=== PATIENT | female | born 1940 | race Caucasian/White ===

== ENCOUNTER → 2017-02-15 | Outpatient (CLI) | payer MEDICARE, OTHER | END | disposition home or self-care (01) | LOC: GMAB 10:43 | PROVIDERS: ATTEND Family Medicine | DX: E53.8 Deficiency of other specified B group vitamins (principal); I10 Essential (primary) hypertension ==

== ENCOUNTER → 2017-05-02 | Outpatient (CLI) | payer MEDICARE, OTHER ==
[~2017-05-02] MED LIST: IPRATROPIUM/ALBUTEROL 3 ML VIAL NEB ONE
== END | disposition home or self-care (01) ==
LOC: RESP 09:58
PROVIDERS: ATTEND Family Medicine
DX: J45.20 Mild intermittent asthma, uncomplicated (principal)
CPT/HCPCS: 94060; J7620

== ENCOUNTER 2017-05-15 15:27 | Inpatient (IN) | payer MEDICARE, OTHER ==
--- NOTE | 2017-05-15 15:28 | HP ---
SUPERVISING PHYSICIAN: Jorge A Fragoso M.D. CHIEF COMPLAINT: Shortness of breath and cough. HISTORY OF PRESENT ILLNESS: This is a 76 year-old female who went to see her primary care physician due to continued upper respiratory infection-like symptoms. Additionally she had a fever up to 102 and green productive sputum upon cough. Starting in April she started having similar symptoms. She was treated as an outpatient with an injectable Rocephin as well as p.o. azithromycin and Cefdinir. Throughout that time, she has really not improved as far as her cough is concerned. She has not noticed any fever until the last day or so, however. She also states that she was newly diagnosed with asthma via a Pulmonary Function Test. Anyhow, today she underwent further workup including chest x-ray initially which showed left lower lobe pneumonia. Her Influenza screen was negative. White count was elevated at 15,000. She ended up having a CT scan of the chest as well and this showed bilateral patchy infiltrates in the lower lobes with nodular densities with tree-in-bud pattern. She also had multiple bilateral pulmonary nodules. For this reason, she was referred for direct admission due to failed outpatient therapy. At time of examination the patient is alert. She is actively coughing any time she attempts to speak. She does not appear to be in severe distress at this time. PAST MEDICAL HISTORY: 1. Cardiac arrhythmias. 2. Hypertension. 3. Diverticulosis. 4. Asthma. PAST SURGICAL HISTORY: 1. Hysterectomy. 2. section. 3. Bilateral knee replacements. 4. Colonoscopy. 5. Cataract surgery. CURRENT MEDICATIONS: 1. Hydrochlorothiazide 12.5 mg daily. 2. Norvasc 5 mg daily but she said she has not really been taking that lately. 3. Potassium 10 mEq p.o. daily. 4. Inderal LA 60 mg daily. 5. Calcium 600 mg 2 tabs p.o. daily. 6. Breo ellipta 100 mcg/25 mcg, one inhalation daily. 7. Albuterol nebulizers 4 times a day as needed. ALLERGIES: AZITHROMYCIN, LEVAQUIN, PENICILLIN, PROTONIX AND ZOCOR. FAMILY HISTORY: She has a sister has had a myocardial infarction. Mother who had renal cell carcinoma. Father who of sudden cardiac . SOCIAL HISTORY: The patient is a nondrinker and nonsmoker. No illicit drugs. She is . REVIEW OF SYSTEMS: CONSTITUTIONAL: Positive for fevers, chills and fatigue. HEENT: No headaches or vision changes. She has had nasal congestion but no throat pain. No ear pain. NECK: With no neck stiffness or neck pain. RESPIRATORY: Positive for cough. No hemoptysis. She has had a productive sputum. No pleuritic chest pains. CARDIOVASCULAR: No recent palpitations. No chest pain. No lower extremity edema. GASTROINTESTINAL: No nausea, vomiting, diarrhea or constipation or abdominal pain. GENITOURINARY: No dysuria, frequency or throat pain. HEMATOLOGIC: No easy bruising or transfusion reaction. ENDOCRINE: No polydipsia, polyuria. No heat or cold intolerance. BACK: No back pain, joint pain or joint swelling or muscle cramps. SKIN: No rashes, lesions or wounds. PHYSICAL EXAMINATION: VITAL SIGNS: GENERAL: This is a 36 year-old female. HEENT: Head is normocephalic and atraumatic. EYES: Pupils are equal and reactive. NOSE: No drainage. THROAT: With moist mucosa. NECK: Supple, midline trachea. No jugular venous distention. CHEST: Symmetrical with equal rise and fall with inspiration and expiration. Lung sounds with an inspiratory and expiratory wheeze right upper lung field. Bibasilar coarse sounds are noted. CARDIOVASCULAR: Regular rate and rhythm. Normal S1 and S2. ABDOMEN: Soft, positive bowel sounds. No tenderness to palpation. No organomegaly. GENITOURINARY: Exam was deferred. EXTREMITIES: Lower extremities with no edema. Pulses are 2+. Capillary refill less than 2 seconds. NEUROLOGIC: The patient is alert and oriented. Moves all extremities. Extraocular movements are intact. RADIOLOGY: Chest x-ray as an outpatient showed a left lower lobe pneumonia with a CT scan that showed bilateral patchy infiltrates in the lower lobes with tree-in-bid pattern, nodular densities concerning for bronchiectasis or aspiration. LABORATORY: CBC as an outpatient showed white blood cell count of 15,000, hemoglobin 12.7, hematocrit 37.6, platelet count 301. Influenza screen is negative. ASSESSMENT: 1. Bibasilar pneumonia with failed outpatient therapy. 2. Asthma. 3. Hypertension. 4. History of cardiac arrhythmias. PLAN: At this time, we will admit the patient under pneumonia guidelines. Due to her allergies, will start her on Cefepime. I have added nebulizer therapy given her recent diagnosis of asthma. I have ordered blood cultures times 2 along with a sputum culture. Initial chemistries have been ordered as well as a repeat CBC. DVT and GI prophylaxis have been ordered with Lovenox and PPI respectively. The patient is a full code at this time. Will resume her home medications once they are reconciled in the computer. #[id number] [facility]
[2017-05-15] MEDS ORDERED: SODIUM CHLORIDE 0.9% (FLUSH) 10 ML SYG IV PRN (16:09)
[2017-05-15] MEDS ORDERED: ACETAMINOPHEN 325 MG TAB PO PRN (16:09)
[2017-05-15] MEDS ORDERED: ENOXAPARIN SODIUM 40 MG/0.4 ML SYG SUBCU SCH (16:30)
[2017-05-15] MEDS ORDERED: IV SET AND CAP CHANGE INJ INJ SCH (16:30)
[2017-05-15] MEDS ORDERED: CEFEPIME 2 GM VIAL IVPB ONE ×2 (17:33→19:31)
[2017-05-15] MEDS ORDERED: SODIUM CHL 0.9% 50ML MIN-BAG+ 50 ML IVPB ONE ×2 (17:33→19:30)
[2017-05-15] MEDS: CEFEPIME 2 GM in SODIUM CHL 0.9% 50ML MIN-BAG+ 50 ML IVPB SCH (17:50)
[2017-05-15] MEDS: KCL 20 MEQ/NS 1,000 ML IVS PRN (19:36)
[2017-05-15] MEDS ORDERED: PROPRANOLOL LA 80 MG CAP PO SCH (21:00)
[2017-05-15] MEDS: IPRATROPIUM/ALBUTEROL 3 ML VIAL INH SCH (21:09)
[2017-05-16] MEDS: CEFEPIME 2 GM in SODIUM CHL 0.9% 50ML MIN-BAG+ 50 ML IVPB SCH ×2 (04:10→16:08)
[2017-05-16] MEDS: OMEPRAZOLE CAP 20 MG CAP PO SCH (06:13)
--- NOTE | 2017-05-16 07:06 | RAD ---
EXAM DESCRIPTION: Chest,1 View CLINICAL HISTORY: Pneumonia COMPARISON: Chest CT obtained yesterday FINDINGS: The cardiomediastinal silhouette is unremarkable. Mural calcifications are noted in the aortic arch. Interstitial and patchy alveolar opacities are present in both lung bases, slightly worse on the left side. No pleural effusion is seen. The lung volumes are within normal range. There is no pneumothorax or acute fracture. IMPRESSION: Interstitial and patchy alveolar opacity in both lung bases, worse on the left side. Findings are stable or slightly worse from yesterday and consistent with provided history of pneumonia. No new abnormality or other significant interval change. Electronically signed by: Taco Miranda MD 05/16/2017 7:04 AM [facility]
[2017-05-16] MEDS: POTASSIUM CHLORIDE 10 MEQ TAB PO SCH (08:54)
[2017-05-16] MEDS: hydroCHLOROthiazide 12.5 MG CAP PO SCH (08:54)
[2017-05-16] MEDS: KCL 20 MEQ/NS 1,000 ML IVS PRN ×2 (08:56→20:37)
[2017-05-16] MEDS: IPRATROPIUM/ALBUTEROL 3 ML VIAL INH SCH ×4 (08:57→20:12)
[2017-05-16] MEDS: PROPRANOLOL 60 MG PO SCH ×2 (10:33→20:37)
--- NOTE | 2017-05-16 13:41 | PN ---
SUPERVISING PHYSICIAN: Jorge A Fragoso MD DATE: 05/16/17 SUBJECTIVE: The patient feels okay. She is still having quite a bit of coughing , but does not have any shortness of breath. She says she feels like she may have had a fever last night, but was not really sure if she did. OBJECTIVE: VITAL SIGNS: Blood pressure 128/55. Heart rate 80. Respiratory rate 18. Temperature 96.7. Oxygen saturation 95% GENERAL: Ms. Riddle is a 76-year-old female in no severe distress at this time. NEUROLOGIC: Alert and oriented. LUNGS: Diminishment in the left base. CARDIOVASCULAR: Regular rate and rhythm. Normal S1, S2. ABDOMEN: Soft. Positive bowel sounds. EXTREMITIES: Lower extremities with no edema. Pulses 2+. Capillary refill less than 2 seconds. LABORATORY: White count 10.2, which is an improvement from yesterday at 16.0. Hemoglobin 10.9, hematocrit 32.1, platelet count 260. Sodium 139, potassium 3.2 , chloride 104, CO2 24, BUN 18, creatinine 1.13, glucose 110, calcium 8.6. RADIOLOGY: Chest x-ray does show a little bit of increase in the left lower lobe infiltrate. ASSESSMENT: 1. Bibasilar pneumonia with failed outpatient therapy. 2. Asthma. 3. Hypertension. 4. History of cardiac arrhythmias. 5. Prerenal azotemia, improved. 6. Hypokalemia, mildly improved. PLAN: We will continue the cefepime. She has remained afebrile and her white count is improved. Radiographically, there may be a mild increase in infiltrate. I will recheck this tomorrow with standing and not portable. We will get a two-view chest x-ray. Continue to monitor the sputum culture. I have also ordered potassium replacement. #[id number] [facility]
[2017-05-16] MEDS ORDERED: SODIUM CHL 0.9% 50ML MIN-BAG+ 50 ML IVPB ONE ×2 (16:01→20:20)
[2017-05-16] MEDS ORDERED: CEFEPIME 2 GM VIAL IVPB ONE ×2 (16:01→20:20)
[2017-05-16] MEDS: ENOXAPARIN SODIUM 40 MG/0.4 ML SYG SUBCU SCH (20:37)
[2017-05-17] MEDS: CEFEPIME 2 GM in SODIUM CHL 0.9% 50ML MIN-BAG+ 50 ML IVPB SCH ×2 (04:18→16:54)
[2017-05-17] MEDS: OMEPRAZOLE CAP 20 MG CAP PO SCH (06:13)
--- NOTE | 2017-05-17 07:45 | RAD ---
Study: Frontal and Lateral Views of the Chest. Indication: pneumonia follow up Comparison: May 16, 2017. Impression: Heart size normal. Patchy opacities at the lung bases are improved but not completely resolved. Continued follow-up recommended. Tiny left effusion. No pneumothorax. Osteopenia. If this is a new finding, DEXA scan recommended as well as evaluation for possible osteoporosis treatment. Electronically signed by: Codey Heredia MD 05/17/2017 7:44 AM [facility]
[2017-05-17] MEDS: POTASSIUM CHLORIDE 10 MEQ TAB PO SCH (08:18)
[2017-05-17] MEDS: IPRATROPIUM/ALBUTEROL 3 ML VIAL INH SCH ×4 (08:40→21:26)
[2017-05-17] MEDS: KCL 20 MEQ/NS 1,000 ML IVS PRN ×2 (08:51→21:59)
[2017-05-17] MEDS: PROPRANOLOL 60 MG PO SCH ×2 (10:05→20:39)
[2017-05-17] MEDS: hydroCHLOROthiazide 12.5 MG CAP PO SCH (10:05)
--- NOTE | 2017-05-17 15:13 | PN ---
SUPERVISING PHYSICIAN: Jorge A Fragoso MD DATE: 05/17/17 SUBJECTIVE: Mr. Riddle feels a little bit better today. She is still having quite a bit of cough. Her shortness of breath is significantly improved. OBJECTIVE: VITAL SIGNS: Blood pressure 111/75. Heart rate 82. Respiratory rate 16. Temperature 98.4. Oxygen saturation 96%. She did have a fever last night of 100.2 around 10 o'clock. GENERAL: Ms. Riddle is a 76-year-old female in no active distress at this time. NEUROLOGIC: Alert and oriented. LUNGS: Left lower base diminishing. No active wheezing. CARDIOVASCULAR: Regular rate and rhythm. Normal S1, S2. ABDOMEN: Soft. Positive bowel sounds. EXTREMITIES: Lower extremities with no edema. Pulses 2+. Capillary refill less than 2 seconds. LABORATORY: Presumptive Streptococcus pneumoniae in the sputum culture. Final sensitivities are not here yet. White count 10.6, hemoglobin 11.0, hematocrit 32.5, platelet count 266. Sodium 140, potassium 3.6, chloride 107, CO2 22, BUN 12, creatinine 0.93, glucose 101, calcium 8.7. RADIOLOGY: Left lower base consolidation has better aeration, but not completely resolved as of yet. ASSESSMENT: 1. Left lower lobe pneumonia. 2. Asthma. 3. Hypertension. 4. History of cardiac arrhythmias. 5. Prerenal azotemia, resolved. 6. Hypokalemia, resolved. PLAN: 1. Continue cefepime. Her WBC count is still normal and radiographically, she has better aeration. I will recheck her chest x-ray tomorrow. There is really no reason to check her labs again. If she is stable, she can probably go home on p.o. antibiotics. It would be beneficial to have her sensitivities back so hopefully they will be before she goes home. #[id number] [facility]
[2017-05-17] MEDS ORDERED: CEFEPIME 2 GM VIAL IVPB ONE ×2 (16:52→19:36)
[2017-05-17] MEDS ORDERED: SODIUM CHL 0.9% 50ML MIN-BAG+ 50 ML IVPB ONE ×2 (16:52→19:35)
[2017-05-17] MEDS: ENOXAPARIN SODIUM 40 MG/0.4 ML SYG SUBCU SCH (20:39)
[2017-05-18] MEDS: CEFEPIME 2 GM in SODIUM CHL 0.9% 50ML MIN-BAG+ 50 ML IVPB SCH (04:10)
[2017-05-18] MEDS: OMEPRAZOLE CAP 20 MG CAP PO SCH (06:12)
[2017-05-18 07:04] VITALS: BP 142/79; TEMP 98.3
[2017-05-18] MEDS: IPRATROPIUM/ALBUTEROL 3 ML VIAL INH SCH (07:21)
[2017-05-18] MEDS: POTASSIUM CHLORIDE 10 MEQ TAB PO SCH (07:53)
[2017-05-18] MEDS: PROPRANOLOL 60 MG PO SCH (08:00)
[2017-05-18] MEDS: hydroCHLOROthiazide 12.5 MG CAP PO SCH (08:00)
--- NOTE | 2017-05-18 10:07 | DS ---
SUPERVISING PHYSICIAN: Jorge A Fragoso MD DISCHARGE DIAGNOSIS: 1. Left lower lobe pneumonia. 2. Asthma. 3. Hypertension. 4. History of cardiac arrhythmias. 5. Prerenal azotemia, resolved. 6. Hypokalemia, resolved. HISTORY OF PRESENT ILLNESS: This is a 76-year-old female patient who seen in her primary care physician's office, Dr. Cleve Waldrop, due to continued upper respiratory infection-like symptoms. She also had a fever up to 102 ith green productive sputum upon cough. Starting in April, she had similar symptoms. She was treated as an outpatient with an injectable Rocephin as well as p.o. azithromycin and Cefdinir. Throughout that time, she had not improved as far as her cough was concerned. There was no fever previously up until the day prior to admission. She also recently had a pulmonary function test that was diagnostic for asthma. Chest x-ray prior to admission showed left lower lobe pneumonia. Her Influenza screen was negative. White count was elevated at 15, 000. CT scan of the chest showed bilateral patchy infiltrates in the lower lobes with nodular densities with tree-in-bud pattern. She also had multiple bilateral pulmonary nodules. She was directly admitted to the hospital for pneumonia due to failed outpatient therapy. HOSPITAL COURSE: Initially, the patient was on cefepime. Her sputum cultures came back Streptococcus pneumoniae which was sensitive to cephalosporins. Preliminary blood cultures show no growth after 48 hours. Her vital signs stabilized. She has not been febrile for over 48 hours. She was given good pulmonary hygiene. Her symptoms improved over her hospital stay. Today, she will be discharged home in stable condition. DISCHARGE PLAN: The patient will be discharged home in stable condition. She has an appointment with Dr. Banda, breast puller at 1 o'clock today. We will send her with all of her labs from this admission as well as all of her radiologic studies. I have also sent her home with written prescriptions for cefdinir, Breo and albuterol. I will let her discuss those medications with Dr. Badna at her appointment today and she can fill those if he would like those continued. She is to followup with Dr. Waldrop on 05/22/17 at [address] as well as Dr[address] Banda today at 1. She is to resume her previous diet. She is to return to the hospital or followup with her primary care physician's office for any other problems or complaints. DISCHARGE MEDICATIONS: 1. Potassium chloride. 2. Propranolol. 3. Hydrochlorothiazide. 4. Cefdinir. 5. Breo Ellipta. 6. Albuterol nebulizers. Dr. Fragoso is the collaborating physician and available for consultation. #[id number] [facility]
[2017-05-18 10:19] VITALS: O2SAT 96
== END 2017-05-18 10:15 | disposition home or self-care (01) | DRG 195 ==
LOC: MS 15:27
PROVIDERS: ADMIT Nurse Practitioner; ATTEND Nurse Practitioner Acute Care
DX: J18.9 Pneumonia, unspecified organism (principal); J45.909 Unspecified asthma, uncomplicated; I10 Essential (primary) hypertension; E87.6 Hypokalemia; B95.3 Streptococcus pneumoniae as the cause of diseases classified elsewhere; R79.89 Other specified abnormal findings of blood chemistry; Z96.653 Presence of artificial knee joint, bilateral; Z79.899 Other long term (current) drug therapy; Z88.0 Allergy status to penicillin; Z88.1 Allergy status to other antibiotic agents; Z88.8 Allergy status to other drugs, medicaments and biological substances

== ENCOUNTER → 2017-07-31 | Outpatient (CLI) | payer MEDICARE, OTHER ==
--- NOTE | 2017-07-31 11:45 | CT ---
EXAM DESCRIPTION: Chest w/o Contrast CLINICAL HISTORY: 77 years, Female, PNEUMONIA COMPARISON: Previous CT chest May 15, 2017 TECHNIQUE: Thin-section noncontrast axial CT images are obtained according to our protocol. Reconstructed MPR images are created and reviewed as well. FINDINGS: Lungs: Compared to the previous study in May 2017, nodular infiltrates which were present in the lower lobes have cleared. Patchy atelectasis or scarring in the inferior lingula and medial right middle lobe is incidentally noted. Calcified granuloma in the region of the right minor fissure is stable. Small nodule in the right lower lobe near the junction of the superior segment and lateral basal segment measures 3 mm unchanged. Optional one-year follow-up might be considered in May 2018. See below. Minimal subpleural scarring is seen in the upper lobes. Linear scar in the left lung base. No pneumothorax or pleural effusion. Bone window images are negative for fracture or lytic lesion. Mediastinum: Lymph nodes are normal in size. Normal vascular contours. Heart size is normal with no pericardial effusion. Coronary arterial calcification is present. Chest wall/axilla: No mass or adenopathy. Breast tissue appears symmetrical. Lower neck/supraclavicular: No mass or adenopathy. Unremarkable thyroid gland. Upper abdomen: Normal upper abdominal viscera. Coronal and sagittal reformatted images confirm the findings. IMPRESSION: Interval clearance of nodular infiltrates in the lower lobes. 3 mm nodule in the right lower lobe unchanged. See recommendation for follow-up below. 2017 Fleischner Society Recommendations for Single Solid Lung Nodule Follow-Up based on size (average of long- and short-axis diameters) <6 mm Low-Risk Patient: No routine follow-up <6 mm High-Risk Patient: Optional CT at 12 months 6-8 mm Low-Risk Patient: CT at 6-[address] at 18-24 months 6-8 mm High-Risk Patient: CT at 6-[address] at 18-24 months This exam was performed according to our departmental dose-optimization program, which includes automated exposure control, adjustment of the mA and/or kV according to patient size and/or use of iterative reconstruction technique. Total DLP equals 272.35 mGycm. Electronically signed by: Hernan Hong MD 07/31/2017 11:44 AM CDT
== END ==
LOC: CT 09:02
PROVIDERS: ATTEND Internal Medicine
DX: J18.9 Pneumonia, unspecified organism (principal)